=== PATIENT | male | born 1960 | race Two or more races ===

== ENCOUNTER 2018-05-07 23:40 | Emergency (ER) | payer MEDICAID ==
[~2018-05-07] VITALS: Ht 188 cm; Wt 127.0 kg
[2018-05-08] MEDS ORDERED: FUROSEMIDE 20 MG/2 ML VIAL IV ONE (01:00)
[2018-05-08 01:32] LABS: Basophils # (auto) 0.2 uL; Basophils % (auto) 2.9 % (0.0-2.0); Eosinophils # (auto) 0.2 uL; Eosinophils % (auto) 3.5 % (0.0-7.0); Hematocrit 36.7 % (41.0-53.0); Hemoglobin 12.1 g/dL (13.5-17.5); Lymphocytes % (auto) 13.8 % (10.0-50.0); Mean Corpuscular Hemoglobin 27.1 pg (28.0-32.0); Mean Corpuscular Hgb Conc. 33.1 g/dL (32.0-36.0); Mean Corpuscular Volume 81.9 fL (80.0-100.0); Monocytes # (auto) 0.4 uL; Monocytes % (auto) 6.1 % (0.0-12.0); Neutrophils # (auto) 5.2 uL; Neutrophils % (auto) 73.7 % (37.0-80.0); Nucleated Red Blood Cells % 0.2 %; Platelet Count (auto) 171 10^3/uL (140-450); Red Blood Cells 4.48 10^6/uL (4.5-5.90); Red Cell Distribution Width 15.7 % (11.8-14.3)
[2018-05-08 01:36] LABS: Calcium 8.6 mg/dL (8.5-10.1); INR 0.94 (0.9-1.15); Magnesium 1.9 mg/dL (1.6-2.6); Partial Thromboplastin Time 24.3 sec (23.78-33.04); Potassium 4.3 mmol/L (3.5-5.1); Prothrombin Time 10.1 sec (9.27-12.13)
[2018-05-08 01:38] LABS: BUN/Creatinine Ratio 18.7
[2018-05-08 01:42] LABS: Bilirubin, Total 0.5 mg/dL (0.2-1.0); Total Protein 6.9 g/dL (6.4-8.2)
[2018-05-08 02:21] VITALS: BP 136/97
== END 2018-05-08 03:54 | disposition home or self-care (01) ==
LOC: EDBD 23:40 → ER 05-08
DX: I11.0 Hypertensive heart disease with heart failure (principal); I50.9 Heart failure, unspecified; J45.909 Unspecified asthma, uncomplicated; Z98.61 Coronary angioplasty status
CPT/HCPCS: 36415; 71045; 80053; 83735; 83880; 84443; 84484; 85025; 85379; 85610; 85730; 94761; 96374; 99284; J1940

== ENCOUNTER → 2023-02-25 | Outpatient (CLI) | payer MEDICAID ==
[~2023-02-25] MED LIST: ACET500T58 PO; ALBUAER3 IN; ASPI1TAB20 PO; ATOR-47 PO; ATOR40TA52 PO; CEPH-509 PO; HYDR-4902 PO; IBU600T PO; LEVO750T8 PO; METF-370 PO; METO-158 PO; METO25TA5 PO; METR500T PO; OMEP20TA PO; POM PO; SEMA2INJ3 SC; TICA90TA PO
[2023-02-25 09:58] VITALS: BP 140/86; PULSE 82; RESP 16; O2SAT 97
[2023-02-25 10:14] VITALS: BP 123/77; PULSE 80; RESP 16; O2SAT 97
== END | disposition home or self-care (01) ==
LOC: CHF HDHVI 09:37
PROVIDERS: ATTEND Internal Medicine Cardiovascular Disease
DX: Z01.818 Encounter for other preprocedural examination (principal); R94.31 Abnormal electrocardiogram [ECG] [EKG]; I11.9 Hypertensive heart disease without heart failure; I25.10 Atherosclerotic heart disease of native coronary artery without angina pectoris
CPT/HCPCS: 93005; G0463

== ENCOUNTER 2023-02-28 07:52 | Day surgery (SDC) | payer MEDICAID ==
[2023-02-25 10:59] LABS: Hematocrit 40.1 % (41.0-53.0); Hemoglobin 12.8 g/dL (13.5-17.5); Mean Corpuscular Hemoglobin 28.5 pg (28.0-32.0); Mean Corpuscular Hgb Conc. 31.9 g/dL (32.0-36.0); Mean Corpuscular Volume 89.2 fL (80.0-100.0); Red Blood Cells 4.49 10^6/uL (4.5-5.90); White Blood Cell 4.1 10^3/uL (4.4-10.8)
[2023-02-25 11:25] LABS: Anion Gap 5 (5-15); Carbon Dioxide 27 mmol/L (20-30); Chloride 109 mmol/L (98-107); Potassium 4.9 mmol/L (3.5-5.1); Sodium 141 mmol/L (136-145)
[2023-02-25 11:26] LABS: Calcium 9.4 mg/dL (8.5-10.1)
[2023-02-25 11:30] LABS: Glucose 85 mg/dL (74-106)
[2023-02-25 11:31] LABS: BUN/Creatinine Ratio 9.9 (10.0-20.0); Blood Urea Nitrogen 9 mg/dL (9-23)
[2023-02-25 11:32] LABS: Basophils % (manual) 0 (0.0-2.0); Metamyelocytes % 0; Myelocytes % 0
[2023-02-25 11:33] LABS: Blast Cells 0; Promyelocytes % 0; Reactive Lymphocytes 0
[2023-02-25 11:52] LABS: INR 0.97 (0.9-1.15); Partial Thromboplastin Time 27.1 SEC (24.5-34.5); Prothrombin Time 10.2 sec (9.3-11.8)
[2023-02-25 14:42] LABS: Band Neutrophils % (manual) 1; Eosinophils % (manual) 1 (0-7); Lymphocytes % (manual) 63 (10.0-50.0); Monocytes % (manual) 5 (0-12)
[2023-02-25 14:43] LABS: Platelet Estimate Adequate
[~2023-02-28 07:52] MED LIST changes: -ATOR-47 PO; -CEPH-509 PO; -HYDR-4902 PO; -IBU600T PO; -LEVO750T8 PO; -METO-158 PO; -METR500T PO; -TICA90TA PO
[2023-02-28] MEDS ORDERED: IOHEXOL 350 MG/ML 100ML IJ ONE (10:33)
[2023-02-28] MEDS ORDERED: LIDOCAINE 2%HCL (LOCAL ANESTH.) INJ 20ML MDV ONE (10:33)
[2023-02-28] MEDS ORDERED: SODIUM CHL 0.9% 0 ML ONE (10:35)
[2023-02-28] MEDS ORDERED: ANGIOMAX 250 MG VIAL IV ONE (10:35)
[2023-02-28] MEDS ORDERED: fentaNYL CITRATE 100 MCG/2 ML VL ONE (10:35)
[2023-02-28] MEDS ORDERED: MIDAZOLAM HCL 2MG/2ML 2ml VIAL (1mg/ml) ONE (10:35)
[2023-02-28] MEDS ORDERED: VERAPAMIL 2.5MG/ML INJ 2ML VIAL IV ONE (10:35)
[2023-02-28] MEDS ORDERED: HEPARIN SODIUM (PORCINE) 5000 UNITS/ML 1ML VIAL ONE (10:35)
[2023-02-28] MEDS ORDERED: IODIXANOL 320MG/ML 100ML BTL IV ONE (10:37)
[2023-02-28 11:20] VITALS: BP 117/79; PULSE 70; RESP 15; O2SAT 97
[2023-02-28 11:35] VITALS: BP 118/84; PULSE 67; RESP 17; O2SAT 98
[2023-02-28 11:50] VITALS: BP 110/81; PULSE 69; RESP 18; O2SAT 98
[2023-02-28 12:05] VITALS: BP 119/74; PULSE 73; RESP 20; O2SAT 98
[2023-02-28 12:35] VITALS: BP 126/96; PULSE 71; RESP 16; O2SAT 97
[2023-02-28 13:05] VITALS: BP 123/87; PULSE 71; RESP 25; O2SAT 96
== END 2023-02-28 13:30 | disposition home or self-care (01) ==
LOC: CATH 07:52
PROVIDERS: ATTEND Internal Medicine Cardiovascular Disease
DX: I25.10 Atherosclerotic heart disease of native coronary artery without angina pectoris (principal); R07.89 Other chest pain; R06.09 Other forms of dyspnea; R06.02 Shortness of breath; I25.82 Chronic total occlusion of coronary artery; I10 Essential (primary) hypertension; E78.5 Hyperlipidemia, unspecified; I25.2 Old myocardial infarction; Z87.891 Personal history of nicotine dependence; E11.21 Type 2 diabetes mellitus with diabetic nephropathy; Z79.82 Long term (current) use of aspirin; Z79.84 Long term (current) use of oral hypoglycemic drugs; J44.9 Chronic obstructive pulmonary disease, unspecified; E11.40 Type 2 diabetes mellitus with diabetic neuropathy, unspecified
CPT/HCPCS: 36415; 80048; 85007; 85027; 85610; 85730; 93458; C1725; C1769; C1894; J1644; J2250; J3010; Q9967; 99152

== ENCOUNTER 2024-02-04 17:04 | Emergency (ER) | payer MEDICAID ==
[~2024-02-04] VITALS: Ht 180.3 cm; Wt 127.0 kg
[2024-02-04 17:11] VITALS: BP 129/82; RESP 16; O2SAT 99
[2024-02-04 17:14] VITALS: PULSE 78
--- NOTE | 2024-02-04 17:20 | ECG ---
[facility] Test Date: 2024-02-04 Test Time: 17:14:01 Pat Name: DAVIDE DORSEY Department: ER Room: Gender: M Lsat Instructor: JAEL : [id number] Requested By: ELANA CAMPOS Order Number: [id number] Reading MD: Measurements Intervals [place] Rate: 78 P: 38 [place]: 136 QRS: 13 QRSD: 97 T: -23 QT: 377 QTc: 430 Interpretive Statements Sinus rhythm Atrial premature complex LVH with secondary repolarization abnormality Inferior infarct, age indeterminate Please click the below link to view image of tracing.
--- NOTE | 2024-02-04 19:36 | ED.PDOC ---
HPI Comments 63-year-old male brought in by EMS. Patient states he was having a heated conversation with the son when he was started feeling some mild shortness a breath. States he checked his blood pressure he was 170s over 100s. States started drinking some water and blood pressure did start to come down. He was concerned so he called EMS. Patient was report a history of three stents. States one of the stents has failed and plugged. Consciousness states high cholesterol. Order to make sure his heart was okay today. While sitting in the waiting room, patient states all his symptoms have subsided. Patient was requesting to be sent home/eloped. Chief Complaint: Shortness of Breath Time Seen by MD: 17:50 Primary Care Provider: RINKU Reviewed Notes: Nurses Notes Allergies: Coded Allergies: NO KNOWN ALLERGIES (Unverified , 05/08/18) Home Meds Active Scripts Metformin Hydrochloride (Metformin Hcl) 500 Mg Tab, 1 TAB PO BID, #60 TAB Prov:JEM AUGUST MD 08/14/19 Reported Medications Patients Own Medication (PATIENTS OWN MEDICATION) ., 140 MG PO for prastate ca PTS OWN MED-OBTAIN FROM PT AND SEND TO RX DRUG: FREQ: RX# EXP: DATE DISP: TECH: RPH: 02/25/23 Semaglutide (Ozempic) 2 Mg/3 Ml Inj, 0.25 MG SC QWEEKLY for sundays, INJ 02/25/23 Metoprolol Tartrate (Metoprolol Tartrate) 25 Mg Tab, 75 MG PO BID for 30 Days, MG 02/25/23 Atorvastatin Calcium (ATORVASTATIN CALCIUM) 40 Mg Tab, 1 TAB PO DAILY, #30 TAB 5 Refills 02/25/23 Albuterol Sulfate (VENTOLIN MDI) 90 Mcg Ih, 90 MCG IN, INH 08/11/19 Acetaminophen (Acetaminophen) 500 Mg Tab, 500 MG PO BID PRN for PAIN SCALE 1 THRU 6, TAB 08/11/19 Omeprazole (Gnp Omeprazole) 20 Mg Tab, 1 TAB PO DAILY, #90 TAB 1 Refill 08/11/19 Aspirin (Aspir-81) 81 Mg Tab, 1 TAB PO DAILY, #30 TAB 5 Refills 08/11/19 Information Source: Patient Mode of Arrival: EMS Past Medical History PAST MEDICAL HISTORY: Asthma, Cancer, CHF, DM, High Lipids, HTN, CO Surgical History: PTCA Family History Family History: Unknown Social History Smoker: Non-Smoker Alcohol: Occasionally Drugs: Denies Drug Use Lives In: Home Constitutional: denies: chills, diaphoresis, fatigue, fever, malaise, sweats, weakness, others EENTM: denies: blurred vision, double vision, ear bleeding, ear discharge, ear drainage, ear pain, ear ringing, eye pain, eye redness, hearing loss, mouth pain, mouth swelling, nasal discharge, nose bleeding, nose congestion, nose pain, photophobia, tearing, throat pain, throat swelling, voice changes, others Respiratory: denies: cough, hemoptysis, orthopnea, SOB at rest, shortness of breath, SOB with excertion, stridor, wheezing, others Cardiovascular: denies: chest pain, dizzy spells, diaphoresis, Dyspnea on exertion, edema, irregular heart beat, left arm pain, lightheadedness, palpitations, PND, syncope, others Gastrointestinal: denies: abdomen distended, abdominal pain, blood streaked bowels, constipated, diarrhea, dysphagia, difficulty swallowing, hematemesis, melena, nausea, poor appetite, poor fluid intake, rectal bleeding, rectal pain, vomiting, others Genitourinary: denies: burning, dysuria, flank pain, frequency, hematuria, incontinence, penile discharge, penile sore, pain, testicle pain, testicle swelling, urgency, others Neurological: denies: dizziness, fainting, headache, left sided numbness, left sided weakness, numbness, paresthesia, pre-existing deficit, right sided numbness, right sided weakness, seizure, speech problems, tingling, tremors, weakness, others Musculoskeletal: denies: back pain, gout, joint pain, joint swelling, muscle pain, muscle stiffness, neck pain, others Integumetry: denies: bruises, change in color, change in hair/nails, dryness, laceration, lesions, lumps, rash, wounds, others Allergic/Immunocompromised: denies: Difficulty Healing, Frequent Infections, Hives, Itching, others Hematologic/Lymphatic: denies: anemia, blood clots, easy bleeding, easy bruising, swollen glands, others Physical Exam General Appearance: No Apparent Distress, Normal HEENT: Normal ENT Inspection, Pharynx Normal, TMs Normal Neck: Full Range of Motion, Non-Tender, Normal, Normal Inspection Respiratory: Chest Non-Tender, Lungs Clear, No Accessory Muscle Use, No Respiratory Distress, Normal Breath Sounds Cardiovascular: No Edema, No JVD, No Murmur, No Gallop, Normal Peripheral Pulses, Regular Rate/Rhythm Breast Exam: Deferred Gastrointestinal: No Organomegaly, Non Tender, No Pulsatile Mass, Normal Bowel Sounds, Soft Genitalia: Deferred Pelvic: Deferred Rectal: Deferred Extremities: No calf tenderness, Normal capillary refill, Normal inspection, Normal range of motion, Non-tender, No pedal edema Musculoskeletal : Apperance: Normal Neurologic: Alert, shirt folder II-XII nml as Tested, No Motor Deficits, Normal Affect, Normal Mood, No Sensory Deficits Cerebellar Function: Normal Reflexes: Normal Skin: Dry, Normal Color, Warm Lymphatic: No Adenopathy Was a procedure done? Was a procedure done?: No CP Differential Dx Differential Diagnosis: Angina, Anxiety / Panic Attack, CO Differential Diagnosis: HTN Essential, HTN Accelerated X-Ray, Labs, Meds, VS Vital Signs Date Time Temp Pulse Resp B/P (MAP) Pulse Ox O2 Delivery O2 Flow Rate FiO2 02/04/24 17:14 78 02/04/24 17:11 97.9 77 16 129/82 (98) 99 X-Ray, Labs, Meds, VS Comment Patient eloped, son picked him up from the emergency department Time of 1ST Reevaluation: 19:36 Reevaluation 1ST: Improved Patient Education/Counseling: Diagnosis, Treatment Family Education/Counseling: Diagnosis Departure 1 Departure Time of Disposition: 19:34 Impression: Primary Impression: Hypertension Qualified Codes: I10 - Essential (primary) hypertension Disposition: 07 LEFT AWOL/ELOPED Condition: Fair Discharged With: Self Critical Care Note Critical Care Time?: No Stability Stability form required: No Heart Score Heart Score: Heart Score Response (Comments) Value History N/A 0 EKG N/A 0 Age N/A 0 Risk Factors N/A 0 Troponin N/A 0 Total 0 ELÍAS BUTLER Feb 04, 2024 19:36
== END 2024-02-04 18:54 | disposition left against medical advice (07) ==
LOC: EDBD 17:04 → ER 17:04 → EDUNIT# 17:04 → ER 18:54
DX: I10 Essential (primary) hypertension (principal); J45.909 Unspecified asthma, uncomplicated; E11.9 Type 2 diabetes mellitus without complications; E78.5 Hyperlipidemia, unspecified; Z79.899 Other long term (current) drug therapy; Z98.890 Other specified postprocedural states
CPT/HCPCS: 93005